=== PATIENT | male | born 1995 | race Caucasian/White ===

== ENCOUNTER 2018-12-03 23:47 | Emergency (ER) | payer MEDICAID, SELFPAY ==
[2018-12-04] MEDS ORDERED: Ibuprofen 600 MG TAB ONE (00:23)
--- NOTE | 2018-12-04 08:14 | RAD ---
RADIOGRAPH CHEST 2 VIEWS: DATE: 12/04/2018 HISTORY: 23-year-old male with chest pain FINDINGS: The lungs are clear. The cardiomediastinal silhouette and hilar shadows appear normal. There is no pl eural effusion or pneumothorax. No osseous abnormality is identified. IMPRESSION: Normal
== END 2018-12-04 00:57 | disposition home or self-care (01) ==
LOC: MADERS 23:47
DX: R07.89 Other chest pain (principal); F17.220 Nicotine dependence, chewing tobacco, uncomplicated
CPT/HCPCS: 71046; 93005